=== PATIENT | male | born 1955 | race Caucasian/White ===

== ENCOUNTER → 2017-01-30 | Outpatient (CLI) | payer OTHER ==
--- NOTE | 2017-01-30 11:58 | XR ---
EXAMINATION TYPE: XR cervical spine comp DATE OF EXAM: 01/30/2017 TECHNIQUE: Frontal, lateral, oblique, and open mouth view of the cervical spine are obtained. HISTORY: M54.2 Cervicalgia neck pain per patient. COMPARISON: None FINDINGS: The cervical spine is visualized in its entirety from C1 thru the top of T1 level, it is s traightened in alignment without evidence of acute fracture or dislocation. The pre-vertebral soft t issue appears within normal limits. The C1-C2 articulation is within normal limits on the open mouth view. The C5 and C6 vertebra show ossific fusion along the anterior and posterior aspects. There is moderat e to advanced disc space narrowing at this level. The vertebra are shortened in AP diameter versus ad jacent vertebra. The C6-C7 disc space shows moderate spurring and disc space narrowing. The oblique i mages show fairly moderate neural foraminal narrowing bilaterally at C6-C7 level and mildly at C5-C6 level. Overlying soft tissue is unremarkable. IMPRESSION: Degenerative changes C5-C6 and C6-C7 level as detailed above, unusual findings of shorten ed and ossific fused C5 and C6 vertebra could reflect product of old trauma or infection. Clinical c orrelation and Correlation with old outside imaging would be beneficial.
== END | disposition home or self-care (01) ==
LOC: RADXRMAIN 11:35
PROVIDERS: ATTEND Family Medicine
DX: M47.812 Spondylosis without myelopathy or radiculopathy, cervical region (principal); M43.22 Fusion of spine, cervical region
CPT/HCPCS: 72050

== ENCOUNTER → 2017-04-02 | Outpatient (CLI) | payer OTHER ==
--- NOTE | 2017-04-02 21:29 | MR ---
EXAMINATION TYPE: MR brain/lspine wo con DATE OF EXAM: 04/02/2017 COMPARISON: NONE HISTORY: Loss of memory, dizziness, low back pain TECHNIQUE: Multiplanar, multisequence imaging of the lumbar spine, brain and brainstem are all perfor med without IV contrast. FINDINGS: BRAIN: Diffusion weighted images demonstrate no evidence of a recent infarct or other diffusion abnormality. There is no worrisome extra-axial fluid collection. The ventricular system and cisternal spaces are normal in size and appearance. The brain volume is age appropriate. There are few scattered foci of T2 hyperintensity seen throughout the white matter bilaterally. Approximately 5-8 scattered small les ions all measuring 4 mm or smaller in size are present. Midline structures demonstrate normal morphology. The craniocervical junction appears within normal limits. Dominant left vertebral artery is present with nonvisualized distal right vertebral artery n oted. There is moderate to severe mucosal thickening in both maxillary sinuses. Patchy fluid signal s een centrally in the right maxillary sinus. There is mild mucosal thickening in bilateral sphenoid si nuses. There is fluid completely filling bilateral frontal sinuses. There is suspected fluid and muco chaz thickening in bilateral ethmoid sinuses. Globes are intact bilaterally. IMPRESSION: 1. Acute on chronic paranasal pansinusitis as detailed above. Consider ENT referral. 2. Mild nonspecific white matter changes most likely on basis of product of chronic small vessel isch emic change in patient of this age. L-SPINE: FINDINGS: Sagittal images of the lumbar spine show vertebral body heights and alignment to appear sat isfactory. Multilevel disc desiccation is present. The disc space heights are fairly well-maintained. No suspicious posterior disc herniations are seen on sagittal images. The conus medullaris is edward l in position and signal ending at T12-L1 disc space level. There is mild to moderate multilevel ante rior spurring with some scattered endplate changes throughout the lumbar spine. Axial images at T12-L1 and L1-L2 level show mild facet degenerative changes bilaterally but spinal ca nal is preserved and bilateral neural foramina are patent. Axial images at L2-L3 level show mild broad disc bulge mildly effacing anterior thecal sac. Bilateral neural foramina are patent. Axial images at the L3-L4 level show mild to moderate broad disc bulge mildly effacing anterior theca l sac. There is mild facet degenerative changes seen bilaterally. There is mild to moderate bilateral anterior inferior neural foraminal narrowing at this level identified. Axial images at L4-L5 level show moderate facet degenerative changes bilaterally. There is broad disc bulge seen. There is moderate left-sided neural foraminal narrowing with some encroachment left L4 n erve suspected on sagittal image 4 and axial image 10. There is more mild right-sided neural foramina l narrowing noted. Axial images at L5-S1 level show mild facet degenerative changes bilaterally. There is central disc p rotrusion seen. Spinal canal is preserved. Bilateral neural foramina are patent. No suspicious retroperitoneal findings are seen. IMPRESSION: Multilevel degenerative changes in the lumbar spine as detailed above most prominent at L 4-L5 level.
== END | disposition home or self-care (01) ==
LOC: RADMRIMAIN 16:28
PROVIDERS: ATTEND Nurse Practitioner Acute Care
DX: R90.82 White matter disease, unspecified (principal); M47.816 Spondylosis without myelopathy or radiculopathy, lumbar region
CPT/HCPCS: 70551; 72148

== ENCOUNTER → 2017-05-22 | Outpatient (CLI) | payer OTHER ==
--- NOTE | 2017-05-22 18:19 | CONS ---
CONSULTATION Dr. Ricks is the primary care. REASON FOR EVALUATION: Sleep apnea. 61-year-old male patient coming in for sleep evaluation with concern of having obstructive sleep apnea. reports the patient snores loud, stops breathing, has chronic hypersomnia and sleepiness during the day. He can fall asleep at any time. He has irregular sleep schedule where he goes to bed sometime around 10:00 pm and sometimes he will stay awake until midnight and when he gets out of bed somewhere between 7:30 to 8:00 a.m. in the morning. He takes naps during the day. He is somnolent and sleep with an [place] score of 18. He sometimes feel so sleepy that he was unable to complete his drive and he thought he was an increased risk of falling asleep while driving. Never the less, he has never been involved in a motor vehicle accidents because of feeling sleepy. He does occasional sleep talking. Does occasionally wake up gasping for air. No anxiety or panic attacks. No palpitation. No heartburn. PAST MEDICAL HISTORY: 1. Chronic neck pain due to cervical spine disease C1 through C6. 2. Hyperlipidemia. 3. Diverticulosis. 4. Obesity. SURGICAL HISTORY: Includes double hernia surgery. DRUG ALLERGIES: Not known. OUTPATIENT MEDICATION LIST: Includes aspirin, fish oil, stool softener, [place] for pain control and the patient takes a cholesterol pill. Exact medications unknown. SOCIAL HISTORY: Smokes 1 pack of cigarettes a day. No history of alcohol. No history of IV drugs. FAMILY HISTORY: Positive for obstructive sleep apnea in his brothers. REVIEW OF SYSTEMS: 12-point review of system was done. Positive for chronic pain and chronic difficulties with hypersomnia and sleepiness or fatigue. PHYSICAL EXAMINATION: BP is 146/72, pulse 78, respirations 20, temperature 97.8 saturation 95% on room air. Weight is 213, height is 5 feet 6 inches. Neck size 17-1/2 inches. GENERAL APPEARANCE: Calm, comfortable, no acute distress. HEENT: Head is atraumatic, normocephalic. Neck is supple. There is no JVD. No goiter or neck masses. The patient has enlarged uvula, enlarged tonsils and significant chronic posterior pharynx, Mallampati class IV. LUNGS: Clear to auscultation. HEART: Sounds are regular rate and rhythm. Normal S1, S2. No S3, S4. No murmurs. ABDOMEN: Soft, nontender. No organomegaly. Obese. Organs cannot be palpated. EXTREMITIES: No edema. No cyanosis or clubbing. NEURO: A and O x3. No focal neurological deficits. PSYCH: Negative for anxiety or depression. SKIN: Negative for wounds or ulceration. IMPRESSION: 1. Obstructive sleep apnea suspected. Clinically there is high suspicion. 2. Hypersomnia with an [place] score of 18. 3. Obesity with a BMI of 34.3. 4. Chronic neck pain. 5. Diverticulosis. 6. Hyperlipidemia. PLAN: 1. Encourage weight loss. 2. Do not drive especially when feeling drowsy or sleepy. 3. Proceed with a screening polysomnogram. 4. Will continue to follow. MMODL / IJN: [id number] /
== END | disposition home or self-care (01) ==
LOC: SLEEP 14:19
PROVIDERS: ATTEND Internal Medicine Critical Care Medicine
DX: G47.10 Hypersomnia, unspecified (principal); E78.5 Hyperlipidemia, unspecified; K57.90 Diverticulosis of intestine, part unspecified, without perforation or abscess without bleeding; M54.2 Cervicalgia; G89.29 Other chronic pain; F17.210 Nicotine dependence, cigarettes, uncomplicated; E66.9 Obesity, unspecified; Z68.34 Body mass index [BMI] 34.0-34.9, adult; Z79.82 Long term (current) use of aspirin; Z79.899 Other long term (current) drug therapy
CPT/HCPCS: 99211

== ENCOUNTER → 2017-09-11 | Outpatient (CLI) | payer OTHER ==
--- NOTE | 2017-09-11 18:38 | PN ---
PROGRESS NOTE Natan is a 62-year-old who is coming in for a CPAP compliancy followup. The patient was diagnosed having severe BULMARO with an AHI of 59.6. The patient was offered CPAP therapy at a pressure of 9 cm of water with a C-Flex of 3. He is also utilizing a medium-size Simplus full face mask. On today's evaluation, the patient reports marked improvement in sleep quality and is waking up much more alert and awake during the day and he is benefitting from the treatment. His compliancy data reflects his adequate use of his CPAP unit. The patient has been using his CPAP for more than 4 hours, almost 26/30 days. His average CPAP use is around 6 hours per night. His leak factor is 5L and his AHI is down to 1.5. He has no complaints. He is benefitting from the treatment. He is trying to lose weight and his treatment has been successful as such. REVIEW OF SYSTEMS: CONSTITUTIONAL: No fever, chills or night sweats. No weight loss. HEENT: Negative for snoring while on CPAP treatment. No sinus allergies or postnasal drainage. CARDIOVASCULAR: Negative for angina or palpitations. PULMONARY: Negative for cough, sputum production. GI: Negative for nausea, vomiting, abdominal pain or GI bleed. No nocturnal heartburn. : Negative for dysuria. Nocturia is improved. MUSCULOSKELETAL: Negative for arthritis or back pain. SKIN: Negative for any wounds or ulceration. NEUROLOGIC: Negative for any headaches or altered mentation. BP is 164/87, pulse 68, respirations 16, weight is 217, temperature 98, saturation 94% on room air. GENERAL APPEARANCE: Calm comfortable, no acute distress. Head is atraumatic, atraumatic, normocephalic. NECK: Short, crowded posterior pharynx. There is no goiter or neck masses. LUNGS: Diminished breath sounds bilaterally. HEART: Sounds regular rhythm. Normal S1, S2. No S3. No murmurs. ABDOMEN: Soft, nontender. No organomegaly. EXTREMITIES: No edema. No cyanosis or clubbing. NEUROLOGIC: The patient is OA x3. There is no focal neurological deficit. PSYCHIATRIC: Appropriate mood and affect. IMPRESSION: 1. Severe obstructive sleep apnea with an apnea-hypopnea index of 59.6, currently on CPAP at a pressure of 9 with excellent clinical response and compliance. 2. Obesity. 3. Hypersomnia, improved. PLAN: 1. Encourage weight loss. 2. Continue CPAP therapy at the same level of pressure. 3. Continue using a Simplus full-face mask. 4. The patient's treatment is effective. The patient is improving. The patient is benefitting from the treatment. He is very compliant. Refills will be given on his CPAP supplies. He will see me back in a year's time. Treatment is successful. ADRIEL / IJN: [id number] /
== END | disposition home or self-care (01) ==
LOC: SLEEP 15:53
PROVIDERS: ATTEND Internal Medicine Critical Care Medicine
DX: G47.33 Obstructive sleep apnea (adult) (pediatric) (principal); E66.9 Obesity, unspecified; G47.10 Hypersomnia, unspecified; Z99.89 Dependence on other enabling machines and devices

== ENCOUNTER → 2018-10-08 | Outpatient (CLI) | payer OTHER ==
--- NOTE | 2018-10-08 17:15 | PN ---
PROGRESS NOTE 63-year-old male patient coming in for annual CPAP compliancy followup. The patient has severe obstructive sleep apnea and an AHI of 59 and patient is currently on CPAP pressure of 9 cm of water. Based on the compliance data, the patient has been using his CPAP every night without any interruption. The patient is using a Simplus medium size full-face mask. He has also purchased a cleaning kit. Based on the compliance data, the patient is using CPAP every night and CPAP use for more than 4 hours 100% and the patient's average CPAP use is around 7.6 hours per night. Leak factor is 2 L/minute and AHI is down to 1.1. His [place] score is at 9. No recent weight gain or weight loss. He is still benefitting from the treatment and he has no complaints. He may be interested in switching to a different masks and I offered him a DreamWear under the nose fullface mask. REVIEW OF SYSTEMS: Fourteen-point review of system was done and is negative other than as mentioned above history of present illness. PHYSICAL EXAMINATION: BP is 152/99, pulse 74, respirations 16, temperature 98.0. Saturation 95% on room air. Height is 5 feet 9 inches, weight is 229, and [place] Score is at 9. BMI 36.9. General appearance: Obese, calm, comfortable. Head is atraumatic, normocephalic. NECK: Supple. No JVD. No goiter. No neck masses. Mallampati class IV. LUNGS: Clear to auscultation. HEART: Sounds regular rate and rhythm. Normal S1/S2. No S3, no murmurs. ABDOMEN: Soft, nontender. No organomegaly. EXTREMITIES: No edema. No cyanosis or clubbing. IMPRESSION: 1. Severe symptomatic obstructive sleep apnea. AHI 59.6, the patient continues to be successfully treated with a CPAP pressure of 9 cm of water with a C-flex of 3. 2. Hypersomnia improved. 3. Obesity BMI of 36.9. PLAN: 1. Continue same CPAP pressure. 2. Offered a DreamWear full face mask under the nose, medium-size as an alternative mask with a Simplus. 3. Encourage weight loss. 4. See me back in a year's time in follow up, earlier if needed. The patient has been successfully treated for now. MMODL / IJN: [id number] /
== END | disposition home or self-care (01) ==
LOC: SLEEP 15:26
PROVIDERS: ATTEND Internal Medicine Critical Care Medicine
DX: G47.33 Obstructive sleep apnea (adult) (pediatric) (principal); E66.9 Obesity, unspecified; Z68.36 Body mass index [BMI] 36.0-36.9, adult; Z99.89 Dependence on other enabling machines and devices